=== PATIENT | female | born 1960 | race Caucasian/White ===

== ENCOUNTER 2018-11-26 03:26 | Inpatient (IN) | payer BC, OTHER ==
[~2018-11-26] VITALS: Ht 162.6 cm; Wt 71.7 kg
[2018-11-26] VITALS (9 sets, daily range): BP systolic 90–130; BP diastolic 54–77
[~2018-11-26 03:26] MED LIST: ACETYL L-CARNI500 MG PO; ALPHA LIPOIC A600 M1 PO; ASPIR 8181 MG PO; ATIVAN0.5 MG PO; CO Q-10100 MG PO; CRESTOR40 MG PO; DEPLIN15 MG PO; EYE PO; EYE VITAMIN PO; EYLEA2 MG/0.05 INTRAOCULR; IBUPROFEN 600600 M1 PO; IODINE PO; KELP1 EACH PO; LEXAPRO20 MG PO; LUCENTIS0.3 MG/0.0 INTRAOCULR; MAGNESIUM OXID400 MG PO; METFORMIN HCL500 MG PO; NEVANAC OPHTHALMIC; NORCO 10-325 T1 EACH PO; NORVASC10 MG PO; NOVOLOG100 UNIT/1 SUBQ; OMEGA-31000 MG PO; PERCOCET 5-3251 EACH; POTASSIUM GLUC500 MG PO; PRINIVIL20 MG PO; PROBIOTIC1 EAC1 PO; PROTONIX40 M1 PO; PROZAC10 MG PO; RESVERATROL50 MG PO; SAME200 MG PO; TYROSINE PO; VITAMIN D-32000 UNIT PO; VITCB500GO PO; WELLBUTRIN SR150 MG PO; XARELTO10 M1 PO; XARELTO10 MG; ZESTRIL10 MG PO; ZOFRAN4 MG PO; [UNRECOGNIZED DRUG - OTHER] GTT; [UNRECOGNIZED DRUG - OTHER] PO
--- NOTE | 2018-11-26 06:31 | NUR ---
PT ARRIVE ON UNIT A DIRECT ADMIT FROM [facility]. FELL FRACTURING HER LEFT FEMUR. FENTANYL AND FLEXARIL PROVIDING PAIN RELIEF. ZOFRAN NAUSEA RELIEF. PLAN FOR POSSIBLE SURGERY 11/26. RESTING COMFORTABLY. NO NEEDS VOICED. CALL LIGHT WITHIN REACH. WILL CONTINUE TO PROVIDE FREQUENT OBSERVATION.
[2018-11-26 06:41] LABS: HEMATOCRIT 38.3 % (37.0-47.0); HEMOGLOBIN 12.9 gm/dL (12.0-15.0); MCH 30.4 pg (26.0-34.0); MCHC 33.7 g/dL (28.0-37.0); RBC 4.25 mil/uL (4.20-5.00); RDW 12.2 % (10.5-14.5); WBC 10.6 thou/uL (4.0-11.0)
[2018-11-26 07:01] LABS: ALBUMIN 3.4 g/dL (3.4-5.0); CALCIUM 8.2 mg/dL (8.5-10.1); CREATININE 0.7 mg/dL (0.6-1.0); POTASSIUM 3.5 mmol/L (3.5-5.1); TOTAL BILIRUBIN 0.4 mg/dL (<0.1-1.0); TOTAL PROTEIN 6.5 g/dL (6.4-8.2)
--- NOTE | 2018-11-26 11:45 | NUR ---
CAMPBELL CATH INSERTED AT THIS TIME WITH NO DISCOMFORT TO PATIENT. HAD CLEAR YELLOW URINE IN CAMPBELL BAG. IV FLUIDS INFUSING ORDERED.
--- NOTE | 2018-11-26 13:33 | NUR ---
AT 1300 PATIENT TAKEN TO PRE-OP. WAS GIVEN IV PRN PAIN MED RIGHT BEFORE.
--- NOTE | 2018-11-26 16:20 | NUR ---
RECIEVED POST OP REPORT FROM NURSE BRADY. PT HAD LEFT ORIF. DID WELL VS= 97.2 15 96 113/53 93% RA . PT TO START CLEAR LIQUIDS AND ADVANCE DIET TOLERATED. PT RETURNED TO FLOOR AT 1625. VS= 97.8 16 73 118/61 93% RA. PT W/O PAIN OR RESP DISTRESS AT THIS TIME. NO N&V. PT ALERT XS 4. FAMILY AT BEDSIDE.
[2018-11-26 20:06] LABS: HEMATOCRIT 32.9 % (37.0-47.0); MCH 30.5 pg (26.0-34.0); MCHC 33.6 g/dL (28.0-37.0); RBC 3.61 mil/uL (4.20-5.00); RDW 12.5 % (10.5-14.5); WBC 12.1 thou/uL (4.0-11.0)
[2018-11-26] MEDS ORDERED: NEURONTIN 300300 M1 PO (21:33)
--- NOTE | 2018-11-27 01:27 | NUR ---
ASSESSMENT COMPLETED.PT C/O PAIN ON HER L KNEE,MANAGED WITH MED.PT COMPLAINED THAT SHE HAS NOT RECEIVED HER HS MEDS,MEDS RECOINCILED,PRINTING SCREEN ASSEMBLER ON DUTY NOTIFIED. ORDER NOTED TO RESTART HS MED.DIET CHANGED TO CARB CONTROL.DRSG ON HER L KNEE C/D/I,ICE PACK TO HER L KNEE.HEMOVAC EMPTIED HAD 40CC. ACUE CHECK CHANGED TO [facility],PT HAS INSULIN PUMP WHICH SHE USES.CAMPBELL CATH TO DD. NON WT BEARING STATUS MAINTAINED.IVF AND IV ABX ADMINISTERED ORDERED.PT ABLE TO MAKE HER NEEDS KNOWN.SCD'S TO BLE.ORDER NOTED TO START LOVENOX IN AM.FALL PRECAUTIONS IN PLACE.CALL LIGHT WITHIN REACH.
[2018-11-27 04:55] VITALS: BP 107/53
[2018-11-27 05:23] LABS: HEMATOCRIT 29.2 % (37.0-47.0); HEMOGLOBIN 9.8 gm/dL (12.0-15.0); MCH 30.5 pg (26.0-34.0); MCHC 33.6 g/dL (28.0-37.0); MCV 90.8 fL (80.0-100.0); RBC 3.22 mil/uL (4.20-5.00); RDW 12.1 % (10.5-14.5); WBC 8.3 thou/uL (4.0-11.0)
[2018-11-27 08:26] VITALS: BP 104/57
--- NOTE | 2018-11-27 10:14 | NUR ---
PT WORKING WITH THERAPIES AT THIS TIME QUINN AND WRAP INTACT TO LEFT KNEE. PT GIVEN PRN PAIN MED EARLIER. PT ALERT XS 4 AND NO RESP DISTRESS.
[2018-11-27 11:25] LABS: ABSOLUTE NEUTROPHILS 5.3 thou/uL (1.4-8.2); BASOPHILS 0.3 % (0.0-2.0); HEMATOCRIT 29.8 % (37.0-47.0); HEMOGLOBIN 9.9 gm/dL (12.0-15.0); LYMPHOCYTES 23.8 % (24.0-44.0); MCH 30.4 pg (26.0-34.0); MCHC 33.3 g/dL (28.0-37.0); MCV 91.5 fL (80.0-100.0); MONOCYTES 9.9 % (1.0-8.0); PLATELET COUNT 141 thou/uL (150-400); RBC 3.25 mil/uL (4.20-5.00); RDW 12.4 % (10.5-14.5); WBC 8.1 thou/uL (4.0-11.0)
--- NOTE | 2018-11-27 11:33 | NUR ---
PT REFUSED FLU VACCINE.
[2018-11-27 11:36] LABS: ALBUMIN 3.1 g/dL (3.4-5.0); CALCIUM 8.6 mg/dL (8.5-10.1); MAGNESIUM 1.8 mg/dL (1.8-2.4); POTASSIUM 3.7 mmol/L (3.5-5.1); TOTAL BILIRUBIN 0.6 mg/dL (<0.1-1.0); TOTAL PROTEIN 5.9 g/dL (6.4-8.2)
--- NOTE | 2018-11-27 12:01 | NUR ---
ASSESSMENT-PT LIVES IN A RANCH STYLE HOME ALONE. HER BROTHER AND [id number] WILL STAY WITH HER TO ASSIST AT HOME. SHE HAS A FRIEND THAT WILL HELP WELL IN THE ROOM NOW. PT HAS A ROLLER WALKER AND CRUTCHES FROM PREVIOUS SURGERIES AND SHE HAS A BAR AROUND HER TOILET. BROTHER SAYS HE WILL BE ABLE TO INSTALL A BAR AROUND SHOWER AREA IF NEEDED. PRIOR TO HER FALL PT WAS INDEPENDENT OF AMB, ADLS, DRIVING AND WORKS FOR [employer]. BROTHER HAS A WALKER WITH A SEAT TAHT SHE CAN USE AND PT HAS A GAIT BELT ALREADY. WILL AWAIT REC FRO THERAPIES. FOLLOWING TO ASSIST WITH DC PLANNING. ANTICIPATE HOME WITH HH SERVICES.
[2018-11-27 17:47] VITALS: BP 98/56
[2018-11-27 21:28] VITALS: BP 121/56
--- NOTE | 2018-11-28 03:27 | NUR ---
ASSUMED CARE OF PT @1900 PT ASSESSED AT START OF SHIFT WITH C/O OF LEG SPASM AND PAIN. PAIN MEDS GIVEN SEE EMAR. UP WITH ASSISTX1 TO THE BATHROOM. PT HAS OWN INSULIN PUMP AND ADMINISTERS HER HOME INSULIN VIA PUMP. FALL PREC IN PLACE AND CALL LIGHT WITHIN REACH WILL CONT POC TILL EOS.
[2018-11-28 04:40] VITALS: BP 102/59
[2018-11-28 05:39] LABS: HEMATOCRIT 25.9 % (37.0-47.0); HEMOGLOBIN 8.7 gm/dL (12.0-15.0); MCH 30.4 pg (26.0-34.0); MCHC 33.5 g/dL (28.0-37.0); MCV 90.8 fL (80.0-100.0); RBC 2.85 mil/uL (4.20-5.00); RDW 12.4 % (10.5-14.5); WBC 6.2 thou/uL (4.0-11.0)
[2018-11-28 05:41] LABS: CALCIUM 8.1 mg/dL (8.5-10.1); CREATININE 0.7 mg/dL (0.6-1.0); POTASSIUM 4.1 mmol/L (3.5-5.1)
[2018-11-28 07:40] VITALS: BP 109/60
--- NOTE | 2018-11-28 11:04 | HC ---
[facility] [place] [address] CONSULTATION Name: DARCI MCCALL Room #: 435-P [facility] IN ..#: [id number] Admission: 11/26/18 Attend Phys: Tee Jalloh MD Discharge: Date of : 58 Report #: [id number] THIS REPORT FOR: //name// CC: FAM unknown Boone Padron DATE OF SERVICE: 11/26/2018 REASON FOR CONSULTATION: Left periprosthetic femur fracture. HISTORY OF PRESENT ILLNESS: The patient is a 58-year-old female who fell last night while leaving a restaurant. She initially was taken to [facility] and found to have a left periprosthetic femur fracture above a revision total knee arthroplasty. This was performed by me several years ago and she requested transfer to [facility] for definitive treatment. PAST MEDICAL HISTORY: Significant for left total knee revision, LEEP procedure, tubal ligation, tonsillectomy, insulin-dependent diabetes, depression, GERD, anterior cervical fusion, colonoscopy, diabetic retinopathy, sleep apnea, hypertension, right eye surgery. CURRENT MEDICATIONS: Have been reviewed and are on the chart. ALLERGIES: No known drug allergies. PHYSICAL EXAMINATION: GENERAL: This is a well-developed, well-nourished female in no acute distress. She is alert and oriented, pleasant, cooperative with exam. EXTREMITIES: Examination of the left leg shows significant swelling of her left thigh with a flexed knee. She has tenderness to palpation globally throughout her thigh. She is neurologically intact distally with full sensation to light touch and a palpable dorsalis pedis pulse. X-RAY EXAMINATION: AP and lateral left femur showed her to have a periprosthetic distal third femur fracture just above the tip of her femoral stem from her revision knee arthroplasty. ASSESSMENT: Left periprosthetic distal third femur fracture. PLAN: Diagnosis, treatment options were discussed with the patient. I am recommending ORIF. We discussed this with she and her daughter; they are understanding and wished to proceed. [address] [address] CONSULTATION Name: DARCI MCCALL Room #: 435-P [facility] IN ..#: [id number] Admission: 11/26/18 Attend Phys: Tee Jalloh MD Discharge: Date of : 58 Report #: [id number] Thank you for allowing us to participate in the care of the patient. <ELECTRONICALLY SIGNED> By: Kar Chaidez MD 11/28/18 1104 1322 2331 Kar Chaidez MD /nt
--- NOTE | 2018-11-28 11:04 | O ---
[facility] [place] [address] OPERATIVE REPORT Name: DARCI MCCALL Room #: 435-P [facility] IN M.R.#: [id number] Admission: 11/26/18 Attend Phys: Tee Jalloh MD Discharge: Date of : 58 Report #: [id number] THIS REPORT FOR: //name// CC: Tee CHIN unknown DATE OF SERVICE: 11/26/2018 PREOPERATIVE DIAGNOSIS: Left distal one-third periprosthetic femur fracture. POSTOPERATIVE DIAGNOSIS: Left distal one-third periprosthetic femur fracture. PROCEDURE: ORIF left distal one-third periprosthetic femur. SURGEON: Kar Chaidez MD. DISPENSING OPERATOR: Melinda Lazo PA-C. INDICATIONS FOR DISPENSING OPERATOR: Throughout the case, extensive manipulation and retraction as well as reduction of the fracture was required. This was supported to me by my mobile sales assistant. ANESTHESIA: LMA. IMPLANTS: Synthes 12-hole distal femoral locking plate with 4 cerclage cables as well as multiple proximal and distal locking screws. TOURNIQUET TIME: 71 minutes. ESTIMATED BLOOD LOSS: 50 mL. COMPLICATIONS: None. SPECIMENS: None. CONDITION UPON LEAVING THE OPERATING ROOM: Stable. INDICATIONS FOR PROCEDURE: The patient is a 58-year-old female who fell late last night, slipping on some wet grass. She went to [facility] and had x-rays taken. She was diagnosed with a left distal third periprosthetic femur fracture. She has previously had a revision total knee arthroplasty performed by me and she requested transfer to [facility] in order for me to treat the fracture. After discussion with she and her daughter including treatment options, she elected for ORIF. DESCRIPTION OF PROCEDURE: Risks, benefits, alternatives, and complications were [facility] [address] [place] [address] OPERATIVE REPORT Name: DARCI MCCALL Yuni Room #: 435-P [facility] IN .R.#: [id number] Admission: 11/26/18 Attend Phys: Tee Jalloh MD Discharge: Date of : 58 Report #: [id number] discussed in detail with the patient and the patient's daughter, including but not limited to, risk of anesthesia, risk of damage to nerves, arteries, blood vessels, risk for infection, bleeding, risk for malunion, nonunion, need for reoperation, and informed consent was obtained from the patient. The left thigh was appropriately marked in the preoperative holding area. She was brought to the operating room and placed in a supine position on operating room table. LMA anesthesia was induced without complication. Left lower extremity was prepped and draped in normal sterile fashion. A sterile tourniquet was used. Timeout was performed properly identifying the patient and procedure as well as the instrumentation and implants. All in the operating room were in agreement. Left lower extremity was elevated, tourniquet was inflated. Tourniquet time was 71 minutes. A lateral incision centered over the femur was made with a 10 blade starting at the knee joint proximally. Dissection was taken down to the fascia. Deep flaps were developed anterior and posterior. Fresh 10 blade was used to make an incision in the IT band and the vastus lateralis was elevated off the intermuscular septum. Fascia was identified and irrigated thoroughly. This was then held reduced by my mobile sales assistant and 2 provisional cerclage cables were placed around the fracture for provisional fixation. These were trimmed and left in place. A 12-hole distal femoral Synthes locking plate placed on the lateral femur and position using AP and lateral imaging. Two distal locking screws were placed to lock the plate distally. Proximally 1 cortical screw was used and placed using the aiming arm in order to bring the plate down to bone where additional locking screws were placed proximally using the aiming arm. Three additional locking screws were placed distally and two cerclage cables were placed around the distal fragment incorporating islet into the plate for stability of the construct. Two additional unicortical screws were placed distally. Fluoroscopic imaging was then brought in to verify adequate fracture reduction and placement of hardware. Tourniquet was deflated. Hemostasis was obtained with Bovie cautery. A deep drain was placed. The IT band was closed with 0 Vicryl, skin was closed with 2-0 Vicryl and skin dwayne. A soft dressing was applied. The patient tolerated this procedure well and went to recovery room under care of Anesthesia postoperatively. <ELECTRONICALLY SIGNED> By: Kar Chaidez MD 11/28/18 1104 [id number] 1715 Kar Chaidez MD /nt
[2018-11-28] MEDS ORDERED: COLACE100 MG PO ×2 (11:36→11:53)
[2018-11-28] MEDS ORDERED: MIRALAX17 GM PO ×2 (11:36→11:53)
[2018-11-28] MEDS ORDERED: CYCLOBENZAPRINE5 MG PO ×2 (11:36→11:53)
--- NOTE | 2018-11-28 11:48 | NUR ---
ASSUMED CARE OF PT AT 0700. [facility] AND PT PROVIDED HER OWN INSULIN PUMP AND BS CHECKS UNTIL 1130, WHEN PT RAN OUT OF INSULIN. PT IS BEING DISCHARGED TO HOME WITH HOME HEALTH. PTS RECENT TEMPERATURE IS 98.8. PTS INCISION IS CLEAN, DRY AND INTACT. WOUND VAC HAD LITTLE DRAINAGE. WALKED WITH PT TODAY. BED IS IN LOWEST POSITION. CALL LIGHT IS WITHIN REACH. WILL CONTINUE TO MONITOR PT UNTIL DC ORDERS ARE GIVEN AND PT IS DISCHARGED.
[2018-11-28] MEDS ORDERED: ASPIR 8181 MG PO (12:11)
[2018-11-28 12:14] VITALS: BP 109/60
[2018-11-28] MEDS ORDERED: NORCO 10-325 T1 EACH PO (13:05)
[2018-11-28 14:50] VITALS: BP 109/60
--- NOTE | 2018-11-28 15:27 | NUR ---
FAXED REFERRAL TO [facility] SPOKE WITH JERMAN IN INTAKE SHE RECEIVED REFERRAL AND CAN ACCEPT. FAXED DC ORDERS/SUMMARY RECEIVED CONFIRMATION AND SPOKE WITH NAINA IN INTAKE SHE WAS WANTING TO KNOW WHO PT'S PCP IS THERE IS NOTHING IN THE CHART SO I LEFT A VOICEMAIL FOR DARCI TO CALL ME WITH PCP INFO. [facility] WILL CALL PT WITH TIME OF VISITS.
== END 2018-11-28 12:38 | disposition home health service (06) | DRG 481 ==
LOC: 4S 03:26 → ENTRNSPT 11-28 12:30 → EDTRNSPTSTS 11-28 12:32 → 4S 11-28 12:38
PROVIDERS: Internal Medicine; Nurse Practitioner Acute Care; Orthopaedic Surgery; ADMIT Hospitalist
PROC: 0QSC04Z Reposition Left Lower Femur with Internal Fixation Device, Open Approach (ICD-10-PCS; principal; 2018-11-26)
DX: S72.402A Unspecified fracture of lower end of left femur, initial encounter for closed fracture (principal); M97.12XA Periprosthetic fracture around internal prosthetic left knee joint, initial encounter; F32.9 Major depressive disorder, single episode, unspecified; K21.9 Gastro-esophageal reflux disease without esophagitis; E10.319 Type 1 diabetes mellitus with unspecified diabetic retinopathy without macular edema; G47.33 Obstructive sleep apnea (adult) (pediatric); D64.9 Anemia, unspecified; D69.6 Thrombocytopenia, unspecified; I10 Essential (primary) hypertension; Z98.1 Arthrodesis status; W18.39XA Other fall on same level, initial encounter; Y93.89 Activity, other specified; Y92.096 Garden or yard of other non-institutional residence as the place of occurrence of the external cause; Y99.8 Other external cause status; Z79.4 Long term (current) use of insulin; Z79.899 Other long term (current) drug therapy; Z28.21 Immunization not carried out because of patient refusal
CPT/HCPCS: 10102; 50101; 50386; 50417; 51412; 55430; 56528; 57180; 62110; 62900; 70005

== ENCOUNTER → 2019-09-07 | Outpatient (CLI) | payer BC, OTHER ==
[~2019-09-07] MED LIST changes: +COLACE100 MG PO; +CYCLOBENZAPRINE5 MG PO; +MIRALAX17 GM PO; +NEURONTIN 300300 M1 PO
== END ==
LOC: LAB 15:06
PROVIDERS: ATTEND Anesthesiology
DX: Z01.812 Encounter for preprocedural laboratory examination (principal); Z11.59 Encounter for screening for other viral diseases

== ENCOUNTER → 2020-01-11 | Outpatient (CLI) | payer BC, OTHER | LOC: LAB 14:52 | PROVIDERS: ATTEND Anesthesiology | DX: Z20.828 Contact with and (suspected) exposure to other viral communicable diseases (principal) ==